=== PATIENT | female | born 1955 | race Caucasian/White ===

== ENCOUNTER → 2016-08-24 | Outpatient (CLI) | payer OTHER ==
--- NOTE | 2016-08-24 11:24 | REPMRS ---
Patient History The patient states she had a clinical breast exam in 07/2016. Patient is postmenopausal and is nulliparous. Family history of pancreatic cancer in maternal cousin at age 50 or over, prostate cancer in maternal cousin at age 50 or over, and colorectal cancer in maternal uncle at age 60. Took estrogen for 1 year. Took progesterone for 1 year. Digital Woman Screen Mammo: August 24, 2016 - Exam #: [id number] Bilateral CC and MLO view(s) were taken. Technologist: Brigette Young, Technologist Prior study comparison: July 10, 2015, digital woman screen mammo performed at [facility]. July 09, 2014, bilateral bilat screen digital mammo, performed at [facility] ([facility] March 02, 2013, bilateral bilat screen digital mammo, performed at [facility] ([facility] FINDINGS: There are scattered fibroglandular densities. There has been no change in the appearance of the mammogram from the prior studies. There is a mild amount of scattered fibroglandular density which is fairly symmetric. There is no interval development of dominant mass, architectural distortion, or clustered microcalcification suggestive of malignancy. ASSESSMENT: BI-RADS/ACR category 1 mammogram. Negative. Recommendation Routine screening mammogram in 1 year (for women over age 40). This mammogram was interpreted with the aid of an FDA-approved computer-aided dectection system. Electronically Signed By: Cory Lubin MD 08/24/16 1128
== END ==
LOC: M WHC 10:03
PROVIDERS: ATTEND Internal Medicine
DX: Z12.31 Encounter for screening mammogram for malignant neoplasm of breast (principal); Z78.0 Asymptomatic menopausal state; Z92.0 Personal history of contraception

== ENCOUNTER → 2017-08-25 | Outpatient (CLI) | payer OTHER | LOC: M WHC 13:48 | DX: Z12.31 Encounter for screening mammogram for malignant neoplasm of breast (principal); M81.0 Age-related osteoporosis without current pathological fracture | CPT/HCPCS: 77067 ==

== ENCOUNTER → 2018-11-06 | Outpatient (CLI) | payer MEDICARE, OTHER ==
--- NOTE | 2018-11-06 10:58 | REPMRS ---
Patient History The patient states she had a clinical breast exam in 07/18. Patient is postmenopausal and is nulliparous. Family history of colorectal cancer at age 60 in maternal uncle, prostate cancer at age 50 or over in maternal cousin, pancreatic cancer at age 50 or over in maternal cousin, prostate cancer at age 50 or over in brother. Took estrogen for 1 year. Took progesterone for 1 year. Digital Woman Screen Mammo: November 06, 2018 - Exam #: [id number] Bilateral CC and MLO view(s) were taken. Technologist: Maranda Hazel, Technologist Prior study comparison: August 25, 2017, digital woman screen mammo performed at [facility]. August 24, 2016, digital woman screen mammo performed at [facility]. July 10, 2015, digital woman screen mammo performed at [facility]. FINDINGS: There are scattered fibroglandular densities. There are stable groupings of microcalcifications in the left breast unchanged from multiple prior studies. There has been no change in the appearance of the mammogram from the prior studies. There is a mild amount of scattered fibroglandular density which is fairly symmetric. There is no interval development of dominant mass, architectural distortion, or clustered microcalcification suggestive of malignancy. 3-D tomosynthesis shows no additional findings. Assessment: BI-RADS/ACR category 2 mammogram. Benign Findings. Recommendation Routine screening mammogram of both breasts in 1 year (for women over age 40). This patient's Lifetime Breast Cancer RIsk is estimated at 4.4 %. This mammogram was interpreted with the aid of an FDA-approved computer-aided dectection system. Electronically Signed By: Cory Lubin MD 11/06/18 [id number]
== END ==
LOC: M WHC 09:04
PROVIDERS: ATTEND Internal Medicine
DX: Z12.31 Encounter for screening mammogram for malignant neoplasm of breast (principal); Z78.0 Asymptomatic menopausal state; Z92.23 Personal history of estrogen therapy

== ENCOUNTER → 2019-08-27 | Outpatient (CLI) | payer MEDICARE, OTHER ==
--- NOTE | 2019-08-29 13:56 | REP ---
AP SPINE L1 - L4 0.976 -1.8 -0.2 LT FEMUR TOTAL 0.700 -2.4 -1.2 LT NECK 0.754 -2.0 -0.5 RT FEMUR TOTAL 0.754 -2.0 -0.8 RT NECK 0.783 -1.8 -0.3 TOTAL BODY TOTAL OTHER COMMENTS: There is low bone density of the spine and hips. The increased density of the spine does represent a significant change. The decreased density of the left hip does not represent a significant change. The decreased density of the right hip does not represent a significant change. The density of the spine has increased 24.5% since the initial exam on 11/14/2002. The spine density has increased 4.6% since the most recent exam on 08/25/2017. The density of the left hip has increased 1.3% since the initial exam on 11/14/2002. The density of the left hip has decreased 1.0% since the most recent exam on 08/25/2017. The density of the right hip has increased 4.3% since the initial exam on 11/14/2002. The density of the right hip has decreased 0.7% since the most recent exam on 08/25/2017. FOLLOW-UP: Recommendation for the next bone density exam: 2 years. CONI
== END ==
LOC: M WHC 10:58
PROVIDERS: ATTEND Internal Medicine
DX: M81.8 Other osteoporosis without current pathological fracture (principal); M85.89 Other specified disorders of bone density and structure, multiple sites

== ENCOUNTER → 2020-03-03 | Outpatient (CLI) | payer MEDICARE, OTHER ==
[~2020-03-03] MED LIST: CALC600T60 PO; CARV12.5 PO; CLONI1TA PO; FURO20TA2 PO; LEVO100T54 PO; LORA-243 PO; LOSA100T50 PO
--- NOTE | 2020-03-24 16:16 | REPMRS ---
Patient History The patient states she had a clinical breast exam in 09/2019. Patient is postmenopausal and is nulliparous. Family history of colorectal cancer at age 60 in maternal uncle, prostate cancer at age 50 or over in maternal cousin, pancreatic cancer at age 50 or over in maternal cousin, prostate cancer at age 50 or over in brother. Took estrogen for 1 year. Took progesterone for 1 year. Digital Woman Screen Mammo: March 03, 2020 - Exam #: [id number] Bilateral CC and MLO view(s) were taken. Technologist: Maranda Hazel, Technologist Prior study comparison: November 06, 2018, bilateral digital woman screen mammo performed at [facility]. August 25, 2017, digital woman screen mammo performed at [facility]. August 24, 2016, digital woman screen mammo performed at [facility]. FINDINGS: There are scattered fibroglandular densities. The Volpara volumetric breast density category is:B. There has been no change in the appearance of the mammogram from the prior studies. There is a mild amount of scattered fibroglandular density which is fairly symmetric. There is no interval development of dominant mass, architectural distortion, or grouped microcalcification suggestive of malignancy. 3-D tomosynthesis shows no additional findings. Report was delayed due to a protracted computer network disruption experienced by this facility. Assessment: BI-RADS/ACR category 1 mammogram. Negative Mammogram. Recommendation Routine screening mammogram of both breasts in 1 year (for women over age 40). This patient's Lifetime Breast Cancer Risk is estimated at 4.2 %. This mammogram was interpreted with the aid of an FDA-approved computer-aided dectection system. Electronically Signed By: Cory Lubin MD 03/24/20 [id number]
== END ==
LOC: M WHC 12:07
PROVIDERS: ATTEND Internal Medicine
DX: Z12.31 Encounter for screening mammogram for malignant neoplasm of breast (principal); Z78.0 Asymptomatic menopausal state

== ENCOUNTER → 2020-06-13 | Outpatient (CLI) | payer MEDICARE, OTHER | LOC: M LABSMTC 09:44 | PROVIDERS: ATTEND Anesthesiology | DX: Z01.812 Encounter for preprocedural laboratory examination (principal); Z20.828 Contact with and (suspected) exposure to other viral communicable diseases ==

== ENCOUNTER 2020-06-18 12:01 | Day surgery (SDC) | payer MEDICARE, OTHER ==
[~2020-06-18] VITALS: Ht 160 cm; Wt 67.1 kg
[~2020-06-18 12:01] MED LIST changes: +LIDOCAINE 2% 100MG/5ML SDV (FOR ANES.) As Ordered ONE; +NS 1,000 ML IV ONE; +propofoL 200 MG/20 ML VIAL As Ordered ONE
--- NOTE | 2020-06-18 14:34 | ROOR ---
Patient Name: Balbir Steen Procedure Date: 06/18/2020 2:13 PM Date of : 1955 Age: 64 Room: [facility] Gender: Female Note Status: Finalized Procedure: Total Colonoscopy to Cecum Indications: Colon cancer screening in patient at increased risk: Family history of 1st-degree relative with colon polyps, Last colonoscopy: 2014 Providers: Mark Medina MD Referring MD: Jamee GLASGOW MD Requesting Provider: Medicines: Monitored Anesthesia Care Complications: No immediate complications. Procedure: Pre-Anesthesia Assessment: - The heart rate, respiratory rate, oxygen saturations, blood pressure, adequacy of pulmonary ventilation, and response to care were monitored throughout the procedure. The Colonoscope was introduced through the anus and advanced to the cecum, identified by appendiceal orifice and ileocecal valve. The colonoscopy was performed without difficulty. The patient tolerated the procedure well. The quality of the bowel preparation was excellent. Findings: The perianal and digital rectal examinations were normal. Non-bleeding internal hemorrhoids were found during retroflexion. The hemorrhoids were small and Grade I (internal hemorrhoids that do not prolapse). Multiple small and large-mouthed diverticula were found in the recto-sigmoid colon, sigmoid colon and descending colon. The exam was otherwise without abnormality on direct and retroflexion views. Impression: - Non-bleeding internal hemorrhoids. - Diverticulosis in the recto-sigmoid colon, in the sigmoid colon and in the descending colon. - The examination was otherwise normal on direct and retroflexion views. - No specimens collected. - The exam was otherwise normal to the cecum. Recommendation: - Patient has a contact number available for emergencies. The signs and symptoms of potential delayed complications were discussed with the patient. Return to normal activities tomorrow. Written discharge instructions were provided to the patient. - High fiber diet. - Discharge patient to home. - Continue present medications. - Repeat colonoscopy in 5 years for screening purposes. - Return to referring physician. - The findings and recommendations were discussed with the patient. Procedure Code(s): --- Professional --- G0105, Colorectal cancer screening; colonoscopy on individual at high risk Diagnosis Code(s): --- Professional --- Z83.71, Family history of colonic polyps K64.0, First degree hemorrhoids K57.30, Diverticulosis of large intestine without perforation or abscess without bleeding CPT copyright 2019 [employer]. All rights reserved. The codes documented in this report are preliminary and upon service delivery management consultant review may be revised to meet current compliance requirements. Mark Medina MD Mark Medina MD 06/18/2020 2:33:58 PM Electronically signed by Mark Medina MD Number of Addenda: 0 Note Initiated On: 06/18/2020 2:13 PM Estimated Blood Loss: Estimated blood loss: none.
[2020-06-18 14:50] VITALS: BP 169/73
== END 2020-06-18 15:11 | disposition home or self-care (01) ==
LOC: M OPP 12:01
PROVIDERS: ATTEND Internal Medicine Gastroenterology
DX: Z12.11 Encounter for screening for malignant neoplasm of colon (principal); Z83.71 Family history of colonic polyps; K57.30 Diverticulosis of large intestine without perforation or abscess without bleeding; K64.0 First degree hemorrhoids; I10 Essential (primary) hypertension; K21.9 Gastro-esophageal reflux disease without esophagitis; E03.9 Hypothyroidism, unspecified; Z79.899 Other long term (current) drug therapy; Z88.1 Allergy status to other antibiotic agents; Z88.2 Allergy status to sulfonamides; Z88.8 Allergy status to other drugs, medicaments and biological substances

== ENCOUNTER → 2020-10-15 | Outpatient (REF) | payer MEDICARE, OTHER ==
[~2020-10-15] MED LIST changes: -LIDOCAINE 2% 100MG/5ML SDV (FOR ANES.) As Ordered ONE; -NS 1,000 ML IV ONE; -propofoL 200 MG/20 ML VIAL As Ordered ONE
[2020-10-15 17:17] LABS: BACTERIA, URINE AUTO NEGATIVE (NEGATIVE); RBC, URINE AUTO TNTC /HPF (0-3); SQUAMOUS EPITHELIAL CELL UR AU 0 /HPF (0-6); WBC, URINE AUTO 14 /HPF (0-3)
== END ==
LOC: M LAB REF 16:22
PROVIDERS: ATTEND Internal Medicine
DX: R30.0 Dysuria (principal); R31.9 Hematuria, unspecified

== ENCOUNTER → 2021-01-19 | Outpatient (REF) | payer MEDICARE, OTHER ==
[2021-01-19 18:16] LABS: PERCENT SATURATION 21.1 % (13.2-45.0)
== END ==
LOC: M LAB REF 16:32
PROVIDERS: ATTEND Internal Medicine
DX: N18.31 Chronic kidney disease, stage 3a (principal); D50.9 Iron deficiency anemia, unspecified

== ENCOUNTER → 2021-03-11 | Outpatient (CLI) | payer MEDICARE, OTHER ==
--- NOTE | 2021-03-11 15:35 | REPMRS ---
Patient History The patient states she had a clinical breast exam in December 2020. Family history of colorectal cancer at age 60 in maternal uncle, prostate cancer at age 50 or over in maternal cousin, pancreatic cancer at age 50 or over in maternal cousin, prostate cancer at age 50 or over in brother. Took estrogen for 1 year. Took progesterone for 1 year. Patient states no breast complaints today. Patient has signed MRS History Sheet. Digital Woman Screen Mammo: March 11, 2021 - Exam #: [id number] Bilateral CC and MLO view(s) were taken. Technologist: Sandie Kumar, Technologist Prior study comparison: March 03, 2020, bilateral digital woman screen mammo performed at [facility]. November 06, 2018, bilateral digital woman screen mammo performed at [facility]. August 25, 2017, digital woman screen mammo performed at [facility]. FINDINGS: There are scattered fibroglandular densities. The Volpara volumetric breast density category is:B. There has been no change in the appearance of the mammogram from the prior studies. There is a mild amount of scattered fibroglandular density which is fairly symmetric. There is no interval development of dominant mass, architectural distortion, or grouped microcalcification suggestive of malignancy. 3-D tomosynthesis shows no additional findings. Assessment: BI-RADS/ACR category 1 mammogram. Negative Mammogram. Recommendation Routine screening mammogram of both breasts in 1 year (for women over age 40). This patient's [facility] Lifetime Breast Cancer Risk is estimated at 3.9 %. This mammogram was interpreted with the aid of an FDA-approved computer-aided dectection system. Electronically Signed By: Cory Lubin MD 03/11/21 1202
== END ==
LOC: M WHC 13:55
PROVIDERS: ATTEND Internal Medicine
DX: Z12.31 Encounter for screening mammogram for malignant neoplasm of breast (principal); Z80.8 Family history of malignant neoplasm of other organs or systems; Z80.42 Family history of malignant neoplasm of prostate

== ENCOUNTER → 2021-08-28 | Outpatient (CLI) | payer MEDICARE, OTHER ==
[~2021-08-28] MED LIST changes: +LOSA100T45 PO; -LOSA100T50 PO
== END ==
LOC: M WHC 11:07
PROVIDERS: ATTEND Internal Medicine
DX: M81.8 Other osteoporosis without current pathological fracture (principal)

== ENCOUNTER → 2021-10-15 | Outpatient (REF) | payer MEDICARE, OTHER | LOC: M LAB REF 12:11 | PROVIDERS: ATTEND Internal Medicine | DX: R20.2 Paresthesia of skin (principal) ==

== ENCOUNTER → 2022-03-19 | Outpatient (CLI) | payer MEDICARE, OTHER | LOC: M WHC 10:03 | PROVIDERS: ATTEND Internal Medicine | DX: Z12.31 Encounter for screening mammogram for malignant neoplasm of breast (principal) ==

== ENCOUNTER → 2023-03-23 | Outpatient (CLI) | payer MEDICARE, OTHER ==
[~2023-03-23] MED LIST changes: -LOSA100T45 PO; +LOSA100T46 PO
== END ==
LOC: M WHC 09:34
PROVIDERS: ATTEND Internal Medicine
DX: Z12.31 Encounter for screening mammogram for malignant neoplasm of breast (principal)

== ENCOUNTER → 2023-07-19 | Outpatient (REF) | payer MEDICARE, OTHER | LOC: M LAB REF 12:26 | PROVIDERS: ATTEND Internal Medicine | DX: D50.9 Iron deficiency anemia, unspecified (principal) ==

== ENCOUNTER → 2023-08-29 | Outpatient (CLI) | payer MEDICARE, OTHER | LOC: M WHC 11:01 | PROVIDERS: ATTEND Internal Medicine | DX: M81.8 Other osteoporosis without current pathological fracture (principal) ==

== ENCOUNTER → 2024-03-06 | Outpatient (REF) | payer MEDICARE, OTHER ==
[2024-03-07 14:39] LABS: PERCENT SATURATION 17.6 % (13.2-45.0)
[2024-03-07 14:40] LABS: FOLATE 22.7 NG/ML (>5.4)
[2024-03-07 14:41] LABS: FERRITIN 64.2 NG/ML (7.3-270.7)
== END ==
LOC: M LAB REF 12:52
PROVIDERS: ATTEND Internal Medicine
DX: M85.80 Other specified disorders of bone density and structure, unspecified site (principal); I12.9 Hypertensive chronic kidney disease with stage 1 through stage 4 chronic kidney disease, or unspecified chronic kidney disease; E03.9 Hypothyroidism, unspecified; D64.9 Anemia, unspecified

== ENCOUNTER → 2024-03-26 | Outpatient (CLI) | payer MEDICARE, OTHER | LOC: M WHC 09:07 | PROVIDERS: ATTEND Internal Medicine | DX: Z12.31 Encounter for screening mammogram for malignant neoplasm of breast (principal) ==

== ENCOUNTER 2024-04-01 12:49 | Emergency (ER) | payer MEDICARE, OTHER ==
[~2024-04-01] VITALS: Ht 160 cm; Wt 63.6 kg
[2024-04-01 13:32] LABS: BASO # 0.1 10^3/uL (0.0-0.2); BASO % 0.8 % (0.0-1.0); EOS # 0.6 10^3/uL (0.0-0.5); EOS % 6.1 % (0.0-3.0); HEMATOCRIT 35.7 % (36.0-47.0); HEMOGLOBIN 11.8 g/dl (12.0-15.5); LYMPH # 2.9 10^3/uL (1.5-5.0); LYMPH % 29.9 % (24.0-44.0); MEAN CORPUSCULAR HEMOGLOBIN 28.6 pg (27.0-33.0); MEAN CORPUSCULAR HGB CONC 33.1 g/dl (32.0-36.5); MEAN CORPUSCULAR VOLUME 86.4 fl (80.0-96.0); MONO # 0.7 10^3/uL (0.0-0.8); NEUTROPHILS # 5.4 10^3/uL (1.5-8.5); NEUTROPHILS % 55.8 % (36.0-66.0); PLATELET COUNT, AUTOMATED 274 10^3/uL (150-450); RED BLOOD COUNT 4.13 10^6/uL (4.00-5.40); WHITE BLOOD COUNT 9.7 10^3/uL (4.0-10.0)
[2024-04-01 13:53] LABS: BLOOD UREA NITROGEN 21 MG/DL (9-23); CALCIUM LEVEL 9.4 MG/DL (8.3-10.6); CARBON DIOXIDE LEVEL 29 MMOL/L (20-31); CHLORIDE LEVEL 105 MMOL/L (98-107); CK-MB VALUE MASS < 1.0 NG/ML (<3.6); CPK CREATINE PHOSPHOKINASE 83 U/L (34-145); CREATININE FOR GFR 1.05 MG/DL (0.55-1.30); GLOMERULAR FILTRATION RATE 55.2 (>39); GLUCOSE, FASTING 107 MG/DL (74-106); MAGNESIUM LEVEL 2.3 MG/DL (1.8-2.4); POTASSIUM SERUM 4.1 MMOL/L (3.5-5.1); SODIUM LEVEL 140 MMOL/L (136-145)
[2024-04-01 13:55] LABS: THYROID STIMULATING HORMONE 2.522 uIU/ML (0.55-4.78)
[2024-04-01] MEDS: FUROSEMIDE 40MG/4ML VIAL IV ONE (14:56)
[2024-04-01 15:21] LABS: CK-MB VALUE MASS < 1.0 NG/ML (<3.6)
[2024-04-01 15:22] LABS: CPK CREATINE PHOSPHOKINASE 81 U/L (34-145); MB/CK RELATIVE INDEX 1.23 (< OR =4)
[2024-04-01 16:47] VITALS: BP 162/90; TEMP 98.9; O2SAT 99
[2024-04-02] MEDS ORDERED: CITRTAB19 PO (12:44)
[2024-04-02] MEDS ORDERED: CLAR10CA3 PO (12:44)
[2024-04-02] MEDS ORDERED: BENA25CA4 PO (12:44)
[2024-04-02] MEDS ORDERED: ROSU5TAB40 PO (12:44)
[2024-04-02] MEDS ORDERED: LOSA50TA28 PO (12:44)
[2024-04-02] MEDS ORDERED: SUPE5000 PO (12:44)
[2024-04-02] MEDS ORDERED: MECL-86 PO (12:44)
[2024-04-02] MEDS ORDERED: CITRTAB18 PO (12:44)
[2024-04-02] MEDS ORDERED: ALEN70TA87 PO (12:45)
[2024-04-02] MEDS ORDERED: AMLO25TA PO (12:47)
[2024-04-02] MEDS ORDERED: LEVO88TA3 PO (13:43)
[2024-04-02] MEDS ORDERED: MELA5CAP2 PO (13:50)
[2024-04-02] MEDS ORDERED: CALC-263 PO (13:50)
[2024-04-02] MEDS ORDERED: VITA100054 PO (13:50)
== END 2024-04-01 16:52 | disposition home or self-care (01) ==
LOC: EDBD 12:49 → M ED 12:49
DX: R55 Syncope and collapse (principal); I10 Essential (primary) hypertension; K21.9 Gastro-esophageal reflux disease without esophagitis; Z88.2 Allergy status to sulfonamides; Z88.1 Allergy status to other antibiotic agents; Z79.899 Other long term (current) drug therapy
CPT/HCPCS: 70450; 71045; 80048; 82550; 82553; 83735; 84439; 84443; 84484; 85025; 93005; 93041; 94760; 96374; 99285; J1940

== ENCOUNTER 2024-04-02 11:09 | Observation (INO) | payer MEDICARE, OTHER ==
[~2024-04-02] VITALS: Ht 160 cm; Wt 73.8 kg
[2024-04-02 12:04] LABS: BASO % 0.4 % (0.0-1.0); EOS # 0.1 10^3/uL (0.0-0.5); EOS % 1.1 % (0.0-3.0); HEMATOCRIT 38.2 % (36.0-47.0); HEMOGLOBIN 12.7 g/dl (12.0-15.5); LYMPH % 19.7 % (24.0-44.0); MEAN CORPUSCULAR HEMOGLOBIN 28.5 pg (27.0-33.0); MEAN CORPUSCULAR HGB CONC 33.2 g/dl (32.0-36.5); MEAN CORPUSCULAR VOLUME 85.8 fl (80.0-96.0); MONO # 0.6 10^3/uL (0.0-0.8); MONO % 5.6 % (2.0-8.0); NEUTROPHILS # 7.5 10^3/uL (1.5-8.5); NEUTROPHILS % 72.8 % (36.0-66.0); PLATELET COUNT, AUTOMATED 293 10^3/uL (150-450); RED BLOOD COUNT 4.45 10^6/uL (4.00-5.40); WHITE BLOOD COUNT 10.3 10^3/uL (4.0-10.0)
[2024-04-02 12:37] LABS: CALCIUM LEVEL 9.5 MG/DL (8.3-10.6); CREATININE FOR GFR 1.07 MG/DL (0.55-1.30); POTASSIUM SERUM 3.6 MMOL/L (3.5-5.1)
[2024-04-02 12:39] LABS: THYROID STIMULATING HORMONE 0.615 uIU/ML (0.55-4.78)
[2024-04-02] MEDS ORDERED: BENA25CA4 PO (12:44)
[2024-04-02] MEDS ORDERED: CITRTAB18 PO (12:44)
[2024-04-02] MEDS ORDERED: CLAR10CA3 PO (12:44)
[2024-04-02] MEDS ORDERED: ROSU5TAB40 PO (12:44)
[2024-04-02] MEDS ORDERED: LOSA50TA28 PO (12:44)
[2024-04-02] MEDS ORDERED: CITRTAB19 PO (12:44)
[2024-04-02] MEDS ORDERED: SUPE5000 PO (12:44)
[2024-04-02] MEDS ORDERED: MECL-86 PO (12:44)
[2024-04-02] MEDS ORDERED: ALEN70TA87 PO (12:45)
[2024-04-02] MEDS ORDERED: AMLO25TA PO (12:47)
[2024-04-02] MEDS: NS 500 ML IV ONE (12:49)
[2024-04-02] MEDS ORDERED: LEVO88TA3 PO (13:43)
[2024-04-02] MEDS ORDERED: HOME MED LIST COMPLETE! XX SCH (13:50)
[2024-04-02] MEDS ORDERED: VITA100054 PO (13:50)
[2024-04-02] MEDS ORDERED: MELA5CAP2 PO (13:50)
[2024-04-02] MEDS ORDERED: CALC-263 PO (13:50)
[2024-04-02] MEDS: ENOXAPARIN 40MG/0.4ML SYRINGE (J1650 PER 10MG) SC SCH (14:38)
[2024-04-02] MEDS ORDERED: LORATADINE 10 MG TAB PO PRN (15:00)
[2024-04-02] MEDS ORDERED: MECLIZINE 25 MG TABLET PO PRN (15:00)
[2024-04-02] MEDS ORDERED: diphenhydrAMINE 25MG CAP PO PRN (15:00)
[2024-04-02] MEDS ORDERED: PILL CUTTER 1 EACH XX PRN (16:00)
[2024-04-02] MEDS ORDERED: diphenhydrAMINE 12.5MG/5ML ELIXIR UDC PO PRN (16:05)
[2024-04-02 16:06] VITALS: BP 162/75; TEMP 97.7; O2SAT 99
[2024-04-02 19:20] VITALS: BP 158/77; TEMP 97.9; O2SAT 97
[2024-04-02] MEDS: CARVedilol 12.5 MG TAB PO SCH (20:12)
[2024-04-02] MEDS: LOSARTAN 50MG TABLET PO SCH (20:13)
[2024-04-03 03:30] VITALS: BP 142/75; TEMP 98.2; O2SAT 98
[2024-04-03 05:04] LABS: HEMATOCRIT 33.9 % (36.0-47.0); HEMOGLOBIN 11.2 g/dl (12.0-15.5); MEAN CORPUSCULAR HEMOGLOBIN 28.8 pg (27.0-33.0); MEAN CORPUSCULAR VOLUME 87.1 fl (80.0-96.0); PLATELET COUNT, AUTOMATED 251 10^3/uL (150-450); RED BLOOD COUNT 3.89 10^6/uL (4.00-5.40)
[2024-04-03] MEDS: LEVOTHYROXINE 88MCG TABLET (0.088 MG) PO SCH (05:19)
[2024-04-03 05:32] LABS: CALCIUM LEVEL 9.1 MG/DL (8.3-10.6); CREATININE FOR GFR 1.01 MG/DL (0.55-1.30); GLOMERULAR FILTRATION RATE 57.7 (>39); POTASSIUM SERUM 3.6 MMOL/L (3.5-5.1)
[2024-04-03 08:19] VITALS: BP_SYST 143; BP_SYST 147; BP_SYST 157; BP_DIAS 77; BP_DIAS 79
[2024-04-03] MEDS: ROSUVASTATIN 10 MG TAB (CRESTOR) PO SCH (08:25)
[2024-04-03 08:26] VITALS: BP 143/77
[2024-04-03] MEDS: FUROSEMIDE 20 MG TAB PO SCH (08:26)
== END 2024-04-03 12:10 | disposition home or self-care (01) ==
LOC: M ED 11:09 → M ED INP 11:10 → M MSPAV 15:57
PROVIDERS: ADMIT Internal Medicine; ATTEND Internal Medicine
DX: R55 Syncope and collapse (principal); I10 Essential (primary) hypertension; E03.9 Hypothyroidism, unspecified; E78.5 Hyperlipidemia, unspecified; K21.9 Gastro-esophageal reflux disease without esophagitis; M81.0 Age-related osteoporosis without current pathological fracture; F32.A Depression, unspecified; F41.9 Anxiety disorder, unspecified; H81.10 Benign paroxysmal vertigo, unspecified ear; Z63.8 Other specified problems related to primary support group; Z90.89 Acquired absence of other organs; Z82.49 Family history of ischemic heart disease and other diseases of the circulatory system; Z80.52 Family history of malignant neoplasm of bladder; Z79.899 Other long term (current) drug therapy; Z79.890 Hormone replacement therapy; Z88.2 Allergy status to sulfonamides; Z88.3 Allergy status to other anti-infective agents
CPT/HCPCS: 36415; 80048; 84443; 85025; 85027; 87486; 87581; 87633; 87798; 93005; 93041; 93306; 93880; 94760; 96360; 96372; 97161; 99285; G0378; J1650

== ENCOUNTER 2024-04-14 10:45 | Observation (INO) | payer MEDICARE, OTHER ==
[~2024-04-14] VITALS: Ht 160 cm; Wt 64.0 kg
[~2024-04-14 10:45] MED LIST changes: +ALEN70TA87 PO; +AMLO25TA PO; +BENA25CA4 PO; +CALC-263 PO; +CITRTAB18 PO; +CITRTAB19 PO; +CLAR10CA3 PO; +LEVO88TA3 PO; +LOSA50TA28 PO; +MECL-86 PO; +MELA5CAP2 PO; +ROSU5TAB40 PO; +SUPE5000 PO; +VITA100054 PO
[2024-04-14 11:41] LABS: BASO # 0.1 10^3/uL (0.0-0.2); BASO % 0.6 % (0.0-1.0); EOS # 0.1 10^3/uL (0.0-0.5); EOS % 0.7 % (0.0-3.0); HEMATOCRIT 33.5 % (36.0-47.0); LYMPH # 1.7 10^3/uL (1.5-5.0); LYMPH % 19.5 % (24.0-44.0); MEAN CORPUSCULAR HEMOGLOBIN 28.6 pg (27.0-33.0); MEAN CORPUSCULAR HGB CONC 32.8 g/dl (32.0-36.5); MONO # 1.1 10^3/uL (0.0-0.8); MONO % 12.9 % (2.0-8.0); NEUTROPHILS # 5.6 10^3/uL (1.5-8.5); NEUTROPHILS % 65.8 % (36.0-66.0); PLATELET COUNT, AUTOMATED 253 10^3/uL (150-450); RED BLOOD COUNT 3.85 10^6/uL (4.00-5.40); WHITE BLOOD COUNT 8.5 10^3/uL (4.0-10.0)
[2024-04-14 11:46] LABS: CALCIUM LEVEL 8.5 MG/DL (8.3-10.6); CREATININE FOR GFR 0.98 MG/DL (0.55-1.30); GLOMERULAR FILTRATION RATE 59.7 (>39); POTASSIUM SERUM 3.2 MMOL/L (3.5-5.1)
[2024-04-14 11:49] LABS: THYROID STIMULATING HORMONE 0.733 uIU/ML (0.55-4.78)
[2024-04-14] MEDS ORDERED: LEXA5TAB13 PO (13:33)
[2024-04-14] MEDS ORDERED: HOME MED LIST COMPLETE! XX SCH (13:35)
[2024-04-14] MEDS ORDERED: MOM 30ML SUSPENSION UDC PO PRN (13:55)
[2024-04-14] MEDS ORDERED: MAALOX 30 ML SUSP *UDC PO PRN (13:55)
[2024-04-14] MEDS: POTASSIUM CHLORIDE 10MEQ SR TABLET PO ONE (14:52)
[2024-04-14] MEDS: ACETAMINOPHEN TAB 650MG DOSE (2X325MG) PO PRN (18:14)
[2024-04-14 21:30] VITALS: BP 181/81; TEMP 99.2; O2SAT 98
[2024-04-14] MEDS: ESCITALOPRAM OXALATE 5MG TABLET (LEXAPRO) PO SCH (22:00)
[2024-04-14] MEDS: DOCUSATE SODIUM 100MG CAPSULE PO SCH (22:00)
[2024-04-14] MEDS: CARVedilol 12.5 MG TAB PO SCH (22:01)
[2024-04-15 00:50] VITALS: BP 140/68; TEMP 99.2; O2SAT 98
[2024-04-15 04:56] VITALS: BP 142/71; TEMP 98.3; O2SAT 98
[2024-04-15] MEDS: LEVOTHYROXINE 88MCG TABLET (0.088 MG) PO SCH (06:28)
[2024-04-15 07:34] VITALS: BP 145/77; TEMP 98.6; O2SAT 95
[2024-04-15 07:48] LABS: BASO % 0.3 % (0.0-1.0); EOS % 0.2 % (0.0-3.0); HEMATOCRIT 35.2 % (36.0-47.0); HEMOGLOBIN 11.3 g/dl (12.0-15.5); LYMPH # 1.6 10^3/uL (1.5-5.0); LYMPH % 25.3 % (24.0-44.0); MEAN CORPUSCULAR HGB CONC 32.1 g/dl (32.0-36.5); MEAN CORPUSCULAR VOLUME 87.3 fl (80.0-96.0); MONO # 0.9 10^3/uL (0.0-0.8); MONO % 14.7 % (2.0-8.0); NEUTROPHILS # 3.7 10^3/uL (1.5-8.5); NEUTROPHILS % 59.2 % (36.0-66.0); PLATELET COUNT, AUTOMATED 236 10^3/uL (150-450); RED BLOOD COUNT 4.03 10^6/uL (4.00-5.40); WHITE BLOOD COUNT 6.3 10^3/uL (4.0-10.0)
[2024-04-15 08:22] LABS: BLOOD UREA NITROGEN 14 MG/DL (9-23); CALCIUM LEVEL 8.5 MG/DL (8.3-10.6); CARBON DIOXIDE LEVEL 26 MMOL/L (20-31); CHLORIDE LEVEL 108 MMOL/L (98-107); CREATININE FOR GFR 0.88 MG/DL (0.55-1.30); GLOMERULAR FILTRATION RATE > 60.0 (>39); GLUCOSE, FASTING 105 MG/DL (74-106); MAGNESIUM LEVEL 2.2 MG/DL (1.8-2.4); POTASSIUM SERUM 4.1 MMOL/L (3.5-5.1); SODIUM LEVEL 140 MMOL/L (136-145)
[2024-04-15] MEDS: VITAMIN D 1,000 INTERNATIONAL UNITS TABLET PO SCH (08:58)
[2024-04-15 08:59] VITALS: BP 145/77
[2024-04-15] MEDS: LORATADINE 10 MG TAB PO SCH (08:59)
[2024-04-15] MEDS: ROSUVASTATIN 10 MG TAB (CRESTOR) PO SCH (08:59)
== END 2024-04-15 12:03 | disposition home or self-care (01) ==
LOC: M ED 10:45 → EDBD 10:45 → M ED INP 13:52 → M PCU 21:22
PROVIDERS: ADMIT Internal Medicine; ATTEND Internal Medicine
DX: R55 Syncope and collapse (principal); I16.0 Hypertensive urgency; I10 Essential (primary) hypertension; U07.1 COVID-19; E89.0 Postprocedural hypothyroidism; E78.5 Hyperlipidemia, unspecified; H81.10 Benign paroxysmal vertigo, unspecified ear; J30.1 Allergic rhinitis due to pollen; M19.90 Unspecified osteoarthritis, unspecified site; Z90.89 Acquired absence of other organs; Z88.2 Allergy status to sulfonamides; Z88.3 Allergy status to other anti-infective agents; Z79.899 Other long term (current) drug therapy; Z79.890 Hormone replacement therapy
CPT/HCPCS: 36415; 70450; 70486; 72125; 80048; 83735; 84443; 85025; 87486; 87581; 87633; 87798; 93005; 93041; 94760; 97161; 99285; G0378

== ENCOUNTER → 2024-04-15 | Outpatient (CLI) | payer MEDICARE, OTHER ==
[~2024-04-15] MED LIST changes: +LEXA5TAB13 PO
== END ==
LOC: M EKG 12:14
PROVIDERS: ATTEND Internal Medicine
DX: R55 Syncope and collapse (principal); Z53.9 Procedure and treatment not carried out, unspecified reason

== ENCOUNTER → 2024-07-09 | Outpatient (REF) | payer MEDICARE, OTHER ==
[~2024-07-09] MED LIST changes: -ROSU5TAB40 PO; +ROSU5TAB49 PO
[2024-07-10 13:22] LABS: PERCENT SATURATION 27.8 % (13.2-45.0)
[2024-07-10 13:25] LABS: FERRITIN 37.3 NG/ML (7.3-270.7)
== END ==
LOC: M LAB REF 13:01
PROVIDERS: ATTEND Internal Medicine
DX: N18.31 Chronic kidney disease, stage 3a (principal); D64.9 Anemia, unspecified

== ENCOUNTER → 2025-03-27 | Outpatient (CLI) | payer MEDICARE, OTHER ==
[~2025-03-27] MED LIST changes: +CHOL25CA2 PO; -VITA100054 PO
== END ==
LOC: M WHC 16:00
PROVIDERS: ATTEND Internal Medicine
DX: Z12.31 Encounter for screening mammogram for malignant neoplasm of breast (principal); R92.323 Mammographic fibroglandular density, bilateral breasts